=== PATIENT | male | born 1975 | race Caucasian/White ===

== ENCOUNTER 2016-09-09 22:41 | Emergency (ER) | payer BC ==
--- NOTE | 2016-09-09 23:36 | ERNOTE ---
Medical Problem HPI - General Chief Complaint: Fever Time Seen by Provider: 09/09/16 22:45 Source: patient Exam Limitations: no limitations - Immun/Allergies/Home Medications Immunizations: IMMUNIZATION HX Immunizations Up to Date Yes History of Influenza Vaccine No Hx Pneumococcal Vaccination More Information Required Allergies/Adverse Reactions: Allergies No Known Allergies Allergy (Verified 09/09/16 22:53) Home Medications: HOME MEDICATIONS Ibuprofen 400 mg PO Q6H PRN 06/13/13 [Last Taken Unknown] Acetaminophen [Tylenol] 325 - 650 mg PO Q4H PRN 07/24/15 [Last Taken Unknown] Zolpidem Tartrate [Ambien] 10 mg PO HS PRN 07/24/15 [Last Taken Unknown] amLODIPine BESYLATE [Norvasc] 10 mg PO HS 08/14/15 [Last Taken 10/12/15 07:30] - History of Present History Narrative: Patient woke up with URI symptoms this morning, mainly a sore throat, and started to have fever up to 102 and chills tonight. 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 Date (Duration): 09/09/16 Review of Systems - Review of Systems Constitutional: Present: fever, chills ENT: Present: nose congestion, sore throat Respiratory: Present: shortness of breath - with walking upstairs, cough - slight Cardiology: Absent: chest pain Gastrointestinal/Abdominal: Absent: nausea, vomiting, abdominal pain Musculoskeletal: Present: muscle pain - aches Neurological: Absent: headache - Patient's Past Medical History Patient History - Medical: No pertinent hx Patient History - Cardiac/Respiratory: Hypertension, Hyperlipidemia Patient History - Cancer: No Hx of Cancer Patient History - Surgical Procedures: EGD, Other - Social History Living Situations: other Smoking Status: Never smoker Have you smoked in the past 12 months: No Do you dip or chew tobacco: No Alcohol Use: occasionally Drug Use: none - Immunizations History of Influenza Vaccine: No Physical Exam - Physical Exam General Appearance: Present: wd/wn, alert, no apparent distress Eye Exam: Normal inspection: bilateral, PERRL: bilateral Ears, Nose, Throat: Present: cerumen impaction, pharyngeal erythema - minimal. Absent: pharyngeal swelling Neck: Absent: lymphadenopathy (R), lymphadenopathy (L) Respiratory: Present: no respiratory distress, normal breath sounds, no accessory muscle use, chest nontender, lungs clear Cardiovascular/Chest: Present: regular rate, rhythm, no murmur Neurological Exam: Present: alert, oriented, normal mood/affect Skin Exam: Present: normal color, warm/dry ED Progress - Results and Orders Patient's Lab Results:: I have reviewed the patient's lab results. - Vital Signs Patient's Vital Signs:: I have reviewed the patient's vital signs. Vital Signs: Vital Signs 09/09/16 22:50 Temperature 37.7 C H Pulse Rate 100 Respiratory 14 Rate Blood Pressure 156/92 O2 Sat by Pulse 95 Oximetry - Progress/Reassessment Chief Complaint: Fever Progress Note-Subjective: 09/09/16 23:56 discussed results and symptomatic treatment with patient Departure - Departure Clinical Impression: Upper respiratory infection Qualifiers: URI type: unspecified viral URI Qualified Code(s): J06.9 - Acute upper respiratory infection, unspecified; B97.89 - Other viral agents as the cause of diseases classified elsewhere Disposition: Home self-care Condition: Good Instructions: Upper Respiratory Infection, Adult, [id number], Form - Excuse from Work, School, or Physical Activity Referrals: Carols Garcia DO [Primary Care Provider] - (as needed)
[2016-09-10 00:05] VITALS: BP 148/86
== END 2016-09-10 00:04 | disposition home or self-care (01) ==
LOC: ER 22:41
DX: J06.9 Acute upper respiratory infection, unspecified (principal); B97.89 Other viral agents as the cause of diseases classified elsewhere

== ENCOUNTER 2016-12-24 19:29 | Emergency (ER) | payer BC, OTHER ==
[2016-12-24 19:59] VITALS: BP 151/83
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
--- OUTSIDE RECORDS SUMMARY | 2016-12-24 20:44 | XMS REPORT | Continuity of Care Document ---
:1975 Author Organization [facility] ([facility]) Address [address] [place] [address] Phone [phone] Care Team Providers Name Role Phone Avila Short Primary Care Provider [phone] Source Comments This disclosure is being made pursuant to the Care Everywhere program, applicable federal and state laws, and may not contain all informaitonavailable regarding this patient.[facility] ([facility]) Active Allergies and Adverse Reactions No Known Allergies Current Medications Prescription Sig. Disp. Refills Start Date End Date Status atenolol 25 mg tablet Take 25 mg by Active mouth 2 times daily. calcium polycarbophil Take 625 mg by Active (FIBERCON) 625 mg tablet mouth 2 times daily. Chlordiazepoxide-Clidinium Take by mouth 4 Active (LIBRAX, WITH CLINIDIUM,) times daily. 5-2.5 mg capsule lisinopril 20 mg tablet Take 20 mg by Active mouth 2 times daily. simvastatin 20 mg tablet Take 20 mg by Active mouth every evening. HYOSCYAMINE PO Take by mouth. Active AMLODIPINE BESYLATE Take by mouth. Active (AMLODIPINE PO) Active Problems Problem Noted Date Helicobacter pylori (H. pylori) infection 09/25/2011 Overview: S/p treatement 05/27. HTN (hypertension) 09/25/2011 Hyperlipidemia 09/25/2011 Social History Tobacco Use Types Packs/Day Years Used Date Never Smoker Smokeless Tobacco: Never Used Alcohol Use Drinks/Week oz/Week Comments Yes 4 drinks per week Last Filed Vital Signs Vital Sign Reading Time Taken Blood Pressure 136/78 11/13/2012 3:26 PM CDT Pulse 70 11/13/2012 2:08 PM CDT Temperature 36.2 C (97.2 F) 11/13/2012 2:08 PM CDT Respiratory Rate 16 11/13/2012 2:08 PM CDT Height 1.8 m (5' 10.87") 01/16/2012 2:47 PM CDT Weight 109.634 kg (241 lb 11.2 oz) 01/16/2012 2:47 PM CDT Body Mass Index 33.84 01/16/2012 2:47 PM CDT Oxygen Saturation 99% 11/13/2012 2:08 PM CDT Plan of Care Health Maintenance Due Date Last Done Comments Hepatitis B Vaccine (1 of 3 - Primary Series) 1975 Tdap Vaccine 11/26/1986 Lipid Disorder Screening 11/26/1993 MMR Vaccine 11/26/1993 Td Vaccine 11/26/1993 Influenza Vaccine: Seasonal (#1) 03/17/2016 Results from Last 3 Months Not on file
== END 2016-12-24 20:31 | disposition home or self-care (01) ==
LOC: ER 19:29
DX: Z03.89 Encounter for observation for other suspected diseases and conditions ruled out (principal)